=== PATIENT | female | born 1975 | race Two or more races ===

== ENCOUNTER → 2024-03-28 | Outpatient (CLI) | payer OTHER, MEDICAID, SELFPAY ==
[2024-03-28 11:50] LABS: Collection Type, Urine Clean Catch; Squamous Epithelial Cell,Urine 0 /hpf (0-5)
[2024-03-28 12:40] LABS: Bacteria,Urine 4+; Bilirubin,Urine Negative (Negative); Blood,Urine 2+ (Negative); Color,Urine Yellow (Lt Yel-Yel); Glucose, Urine Negative (Negative); Ketones,Urine Negative (Negative); Leukocyte Esterase,Urine Positive (Negative); Nitrite,Urine Positive (Negative); PH,Urine 6.5 (5.0-7.0); Protein,Urine 2+ (Neg - Trace); RBC,Urine 124 /hpf (0-3); Urobilinogen,Urine Negative mg/dL (0.0-1.0); WBC,Urine 2345 /hpf (0-5)
[2024-03-28 12:46] LABS: Clarity,Urine Cloudy (Clear/Hazy)
== END | disposition home or self-care (01) ==
PROVIDERS: PCP Physician Assistant; Referring Provider Physician Assistant; Visit Provider Physician Assistant
DX: N39.0 Urinary tract infection, site not specified (principal)
CPT/HCPCS: 81001; 87077; 87086; 87186

== ENCOUNTER → 2024-03-31 | Outpatient (CLI) | payer OTHER, MEDICAID, SELFPAY ==
[2024-03-31 16:05] LABS: Collection Type, Urine Clean Catch
[2024-03-31 16:36] LABS: Bilirubin,Urine Negative (Negative); Blood,Urine Trace (Negative); Clarity,Urine Clear (Clear/Hazy); Color,Urine Yellow (Lt Yel-Yel); Glucose, Urine Negative (Negative); Hyaline Casts,Urine < 1 /hpf (0-1); Ketones,Urine Negative (Negative); Leukocyte Esterase,Urine Positive (Negative); Nitrite,Urine Negative (Negative); Protein,Urine Negative (Neg - Trace); RBC,Urine 5 /hpf (0-3); Specific Gravity,Urine 1.013 (1.001-1.035); Squamous Epithelial Cell,Urine 1 /hpf (0-5); Urobilinogen,Urine Negative mg/dL (0.0-1.0); WBC,Urine 6 /hpf (0-5)
== END | disposition home or self-care (01) ==
LOC: COPL 14:42
PROVIDERS: PCP Registered Nurse; Referring Provider Registered Nurse; Visit Provider Registered Nurse
DX: N39.0 Urinary tract infection, site not specified (principal)
CPT/HCPCS: 81001; 87086

== ENCOUNTER → 2024-05-10 | Outpatient (CLI) | payer OTHER, MEDICAID, SELFPAY ==
--- NOTE | 2024-05-10 15:15 | XR_ITS ---
Examination: Screening digital mammography, bilateral Computer aided detection 3-D breast Tomosynthesis, bilateral Date and time of exam: May 10, 2024 1508 hrs. Compared to mammograms dating to December 13, 2019 Indication: Screening Technique: Nonmagnified MLO, CC views of the breasts to been obtained, reconstructed from 3-D Tomosynthesis images. R2 computer aided detection program utilized for evaluation of suspicious masses and/or abnormal calcifications. 3-D Tomosynthesis images obtained. Findings: The breasts are heterogeneously dense, which may obscure small masses 8 mm nodule 12:00 position left breast Benign calcifications Impression: BI-RADS Category 0: Incomplete: Need additional imaging evaluation 8mm nodule 12:00 position left breast, recommend follow-up spot tomographic views of this nodule as well as left breast sonography to complete the workup
== END | disposition home or self-care (01) ==
PROVIDERS: PCP Registered Nurse; Referring Provider Registered Nurse; Visit Provider Registered Nurse
DX: Z12.31 Encounter for screening mammogram for malignant neoplasm of breast (principal); N63.25 Unspecified lump in the left breast, overlapping quadrants
CPT/HCPCS: 77063; 77067

== ENCOUNTER → 2024-06-07 | Outpatient (CLI) | payer OTHER, MEDICAID, SELFPAY ==
--- NOTE | 2024-06-07 15:00 | XR_ITS ---
Examination: Breast ultrasound, unilateral, left Date and time of exam: May 27, 2024 1409 hours Indications: Mammogram May 10, 2024 8mm nodule 12:00 position left breast Technique: Real-time thornton scale ultrasonographic imaging performed left breast including all 4 quadrants as well as nipple retroareolar and axillary region. Findings: No cystic or solid mass Impression: BI-RADS Category 1: Negative study
--- NOTE | 2024-06-07 15:30 | XR_ITS ---
Examination: Diagnostic digital mammography, unilateral, left Computer aided detection 3-D breast Tomosynthesis, unilateral Date and time of exam: 06/07/2024, 3:11 PM Comparisons: February 2023 through November 2023 Indications: Further evaluation of abnormality seen on screening exam Technique: Nonmagnified MLO, CC views of the left breast have been obtained, reconstructed from 3-D Tomosynthesis images. R2 computer aided detection program utilized for evaluation of suspicious masses and/or abnormal calcifications. 3-D Tomosynthesis images obtained. Technologist: Findings: The breasts are heterogeneously dense, which may obscure small masses. No evidence of abnormal masses or suspicious calcifications. The previously described abnormality does not persist on spot compression views and represents superimposition of normal fibroglandular tissue Impression: BI-RADS category 1: Negative findings (within normal) Recommend 1 year follow-up mammogram
== END | disposition home or self-care (01) ==
PROVIDERS: PCP Registered Nurse; Referring Provider Registered Nurse; Visit Provider Registered Nurse
DX: R92.312 Mammographic fatty tissue density, left breast (principal); N63.25 Unspecified lump in the left breast, overlapping quadrants
CPT/HCPCS: 76641; 77061; 77065; G0279

== ENCOUNTER 2024-07-04 14:47 | Outpatient (AMB) | payer OTHER, MEDICAID, SELFPAY ==
[2024-07-04 14:59] VITALS: BP 128/83; PULSE 101; RESP 19; TEMP 36.3; O2SAT 100; BMI 31.4
--- NOTE | 2024-07-04 14:59 | PD.ORTHCLVIS ---
Vital signs 07/04/24 14:59 Height 1.55 m Height Method Stated Weight 75.353 kg Weight Measurement Method Standing Scale BMI 31.4 BP 128/83 Blood Pressure Source Automatic Cuff Blood Pressure Location Right Upper Arm Position Sitting Respiration 19 Pulse 101 H Pulse Source Monitor Temp 97.4 F Temp Source Temporal Artery Scan Pulse Oximetry (%) 100 Oxygen Delivery Method Room Air Med/Allergies Allergies & Medications Allergies No Known Allergies Allergy (Verified 07/04/24 15:00) Medication Reconciliation linaclotide 72 mcg capsule (Linzess) 72 mcg PO QDAY 03/24/22 [History Confirmed 12/10/23] Exam Exam Patient is in no acute distress and is cooperative with the examination today. Breathing is nonlabored. Patient has a normal mood and affect. The patient has a gait that is [nonantalgic] Bilateral extremities were evaluated and demonstrates sensation intact to light touch. Palpable pedal pulses are present. No significant edema is present. Bilateral hips were examined. The patient has no pain with log roll of the hips. Internal rotation to 30 degrees and external rotation to 30 degrees is painless. Negative FADIR. Left knee was examined today. The left knee is in reasonable alignment. Range of motion from 0-120 degrees. Knee is stable to varus and valgus as well as AP translation with <5mm. Patient has a negative McMurrays. There is no pain with patellofemoral compression and no crepitus noted. The knee is nontender to palpation. The right knee was also examined. The right knee is in [neutral] alignment. Range of motion from [0-120] degrees. Knee is stable to varus and valgus as well as AP translation with <5mm. Patient has a [negative] McMurrays. There is [no] pain with patellofemoral compression and [no] crepitus noted. The knee is Tender to palpation medially X-rays demonstrate mild arthritis of bilateral knees. Her hip and back x-rays are also relatively mild regarding arthritis Her back demonstrates a mild-moderate disc herniation at L4-5. There is no significant stenosis Assessment and Plan Problem List (1) Spinal stenosis: Status: Acute (2) Pain of left lower extremity: Status: Acute Plan: Hip and knee x-rays were relatively benign. We will give her bilateral knee injcetions today as The last injections have worked for more than 5 months Recommend knee cortisone injections as patient would like to proceed with conservative treatment at this time. The risks and benefits of the procedure were reviewed with the patient and patient gave verbal consent to continue with the procedure. Procedure: performed by Dr. Davila Using sterile technique the Bilateral knees were thoroughly prepped with alcohol, and approximately 1 cc of Kenalog 40 mg/mL and 4 cc of 1% lidocaine was injected into each knee without resistance into the medial tibial femoral joint space. The patient tolerated the procedure. (3) Pain of right lower extremity: Status: Acute Office Procedures GNS Level of Care Nursing/Assessment Patient Status: Established Patient Nursing Assessment/Reassesment: Medication Reconciliation, Update PMH in EMR and Vital Signs Coordination of Care: Complex Care/Chronic Disease 5 or more, Education Complex Pt/Fam, Consent,records obtained, informed consent, Results/Orders obtained and Staff clarify orders Established Patient Charge Established Patient Point Assignment: 105 Established Patient Point Charge: Level 3 (80-115) [place] Intake Visit Data Collection New Patient or Established: Established Patient (seen at [facility] within 3 years) Reason for Visit:: BILATERAL KNEE PAIN, WORSE ON THE RIGHT Business Education Instructor Required: Yes Business Education Instructor's name/title: MANI ANDRE Do You Feel Safe at Home: Yes Questionairres Past Medical History Past Medical History Have you ever been diagnosed with any of the following: Neurological Problems Seizures: No Cardiology Problems Hypercholesterolemia: Yes Congestive Heart Failure: No Respiratory Problems Chronic Obstructive Pulmonary Disease (COPD): No Stomache/Intestinal Problems Ulcer: Yes Gastroesophageal Reflux Disease: Yes Obesity: Yes Genital/Urinary Problems Renal Disease: No Polycystic Kidney Disease: Yes Musculoskeletal Problems Carpal Tunnel Syndrome: Yes (Left hand) Endocrine Problems Diabetes Mellitus Type 1: No Diabetes Mellitus Type 2: No (pre DM no meds) Psychologic Problems Anxiety: Yes Other Problems Hospitalization: No Down Syndrome: No Developmental Delay: No Falls: No Blood Transfusions: No Blood Transfusion Reaction: No Anesthesia Reactions: No Chicken Pox: Yes Measles: Yes Mumps: Yes Subjective Visit Visit for: follow up visit and knee Immunization / Flu Flu Vaccine in the Last 12 Months: No Flu Vaccine Exclusion Criteria: No Exclusion Criteria History of Present Illness Chief complaint: BILATERAL KNEE PAIN, WORSE ON THE RIGHT Patient is a 49 yo female with bilateral knee pain with mild arthritis. We have tried injections and pt in the past. She reports the last injections have helped for quite a while. Personal History Red flag PMH: none BMI Counceling provided: Yes Pain Pain level (0-10): 8 Pain duration: CONSTANT Pain location: posterior Pain timing: increases with activity Associated signs & symptoms: weakness Ambulatory data Ambulatory device: none Review of Systems Review of Systems: All systems negative unless otherwise noted in HPI.
== END 2024-07-04 15:21 | disposition home or self-care (01) ==
PROVIDERS: PCP Registered Nurse; Referring Provider Registered Nurse; Supervising Provider Orthopaedic Surgery Adult Reconstructive Orthopaedic Surgery; Visit Provider Orthopaedic Surgery Adult Reconstructive Orthopaedic Surgery
DX: M79.662 Pain in left lower leg (principal); M79.661 Pain in right lower leg; M48.00 Spinal stenosis, site unspecified; E78.00 Pure hypercholesterolemia, unspecified
CPT/HCPCS: 20610; 99213; J3301; J3490; G0463

== ENCOUNTER → 2024-12-08 | Outpatient (CLI) | payer OTHER, MEDICAID, SELFPAY ==
[2024-12-08 14:38] LABS: Collection Type, Urine Clean Catch
[2024-12-08 16:22] LABS: Bilirubin,Urine Negative (Negative); Blood,Urine Negative (Negative); Clarity,Urine Clear (Clear/Hazy); Color,Urine Colorless (Lt Yel-Yel); Glucose, Urine Negative (Negative); Ketones,Urine Negative (Negative); Leukocyte Esterase,Urine Positive (Negative); Nitrite,Urine Negative (Negative); PH,Urine 6.5 (5.0-7.0); Protein,Urine Negative (Neg - Trace); RBC,Urine 1 /hpf (0-3); Specific Gravity,Urine 1.004 (1.001-1.035); Squamous Epithelial Cell,Urine 1 /hpf (0-5); Urobilinogen,Urine Negative mg/dL (0.0-1.0); WBC,Urine 1 /hpf (0-5)
== END | disposition home or self-care (01) ==
LOC: SLDO 14:28
PROVIDERS: Referring Provider Registered Nurse; Visit Provider Registered Nurse
DX: N39.0 Urinary tract infection, site not specified (principal)
CPT/HCPCS: 81001; 87086

== ENCOUNTER → 2025-01-05 | Outpatient (CLI) | payer OTHER, MEDICAID, SELFPAY | END | disposition home or self-care (01) | LOC: SLDO 14:49 | PROVIDERS: PCP Registered Nurse; Referring Provider Registered Nurse; Visit Provider Registered Nurse | DX: R30.0 Dysuria (principal) | CPT/HCPCS: 87086 ==